=== PATIENT | male | born 1985 | race Hispanic/Latino ===

== ENCOUNTER 2016-12-12 13:58 | Outpatient (CLI) | payer OTHER ==
[2016-12-12 18:19] LABS: Anion Gap 13 mmol/L (10-20); BUN (Urea Nitrogen) 30 mg/dL (8.9-20.6); Calc. Creatinine Clearance 0 mL/min (70-130); Calcium 8.9 mg/dL (7.8-10.44); Carbon Dioxide 22 mmol/L (22-29); Chloride 111 mmol/L (98-107); Estimated GFR-MDRD 52; Glucose 97 mg/dL (70-105); Potassium 5.3 mmol/L (3.5-5.1); Sodium 141 mmol/L (136-145)
[2016-12-13 18:08] LABS: Creatinine, Urine 96.48 mg/dL (63-166)
== END 2016-12-12 13:59 | disposition home or self-care (01) ==
LOC: NAV LAB 13:58
PROVIDERS: ATTEND Internal Medicine Nephrology
DX: N18.9 Chronic kidney disease, unspecified (principal)
CPT/HCPCS: 36415; 80048; 82570; 84156

== ENCOUNTER 2017-08-28 18:32 | Outpatient (CLI) | payer OTHER ==
[2017-08-28 18:58] LABS: Potassium 4.7 mmol/L (3.5-5.1)
== END 2017-08-28 18:33 | disposition home or self-care (01) ==
LOC: NAV LAB 18:32
PROVIDERS: ATTEND Anesthesiology Pain Medicine
DX: N18.3 Chronic kidney disease, stage 3 (moderate) (principal)
CPT/HCPCS: 84132